=== PATIENT | female | born 1960 | race Caucasian/White ===

== ENCOUNTER → 2018-09-13 | Outpatient (CLI) | payer BC ==
--- NOTE | 2018-09-13 09:29 | EKG ---
FACILITY: [facility] PATIENT NAME: KAELA CUBA : [id number] MR: [id number] V: [id number] EXAM DATE: ORDERING PHYSICIAN: CASSIUS STYLES TECHNOLOGIST: NHAN Soto Reason : CP Blood Pressure : / mmHG Vent. Rate : 060 BPM Atrial Rate : 060 BPM P-R Int : 122 ms QRS Dur : 098 ms QT Int : 436 ms P-R-T Axes : 074 085 071 degrees QTc Int : 436 ms Sinus rhythm Normal ECG No previous ECGs available Confirmed by DONNA BARRAGAN ([id number]) on 09/13/2018 9:39:39 AM Referred By: JENSEN Confirmed By:DONNA BARRAGAN
== END ==
LOC: RESP 09:10
PROVIDERS: ATTEND Family Medicine
DX: R07.9 Chest pain, unspecified (principal)
CPT/HCPCS: 93005